=== PATIENT | male | born 1965 | race Caucasian/White ===

== ENCOUNTER 2019-12-19 07:10 | Day surgery (SDC) | payer OTHER ==
[2019-12-18 12:02] VITALS: BMI 38.2
[2019-12-19] MEDS ORDERED: AFRIN NASAL MIST 15 ML BOT ONE ×2 (08:51→09:00)
[2019-12-19] MEDS ORDERED: Lidocaine 1% w/Epinephrine 1:100K 20 ML VIAL ONE (08:59)
[2019-12-19] MEDS ORDERED: Bacitracin Zinc Ointment 30 gm TUBE ONE (09:00)
[2019-12-19] MEDS ORDERED: Fentanyl 250 MCG/5 ML VIAL ONE (09:14)
[2019-12-19] MEDS ORDERED: Rocuronium Bromide 10 MG/ML (10ML VIAL) ONE (09:17)
[2019-12-19] MEDS ORDERED: Glycopyrrolate 0.2 MG/ML 5 ML SYRINGE ONE (09:17)
[2019-12-19] MEDS ORDERED: Ondansetron PF 4 MG/2 ML Vial ONE (09:17)
[2019-12-19] MEDS ORDERED: Dexamethasone 20 MG/5 ML VIAL ONE (09:17)
[2019-12-19] MEDS ORDERED: Lidocaine 1% PF 5 ML VIAL ONE (09:17)
[2019-12-19] MEDS ORDERED: PROPOFOL 200 MG/20 ML VIAL ONE (09:17)
[2019-12-19] MEDS ORDERED: Labetalol HCl 100 MG/20 ML VIAL ONE (09:17)
[2019-12-19] MEDS ORDERED: Ferric Subsulfate (ASTRINGYN) 8 ML VIAL ONE (09:51)
[2019-12-19] MEDS ORDERED: Morphine 4 MG/ML VIAL ONE (09:56)
[2019-12-19] MEDS ORDERED: Hydrocodone-Acetamin 15 ML UDCUP ONE (11:34)
--- NOTE | 2019-12-19 12:36 | EKG ---
Test Reason : PREOP Blood Pressure : / mmHG Vent. Rate : 072 BPM Atrial Rate : 072 BPM P-R Int : 162 ms QRS Dur : 082 ms QT Int : 418 ms P-R-T Axes : 048 027 017 degrees QTc Int : 457 ms Normal sinus rhythm NS T wave changes No previous ECGs available Confirmed by DR. Robles BUCKLEY ([id number]) on 12/19/2019 12:35:42 PM Referred By: ALEXSANDER Confirmed By:DR. Robles BUCKLEY
--- NOTE | 2019-12-20 09:48 | OP ---
DATE OF PROCEDURE: 12/19/2019 PREOPERATIVE DIAGNOSES: 1. Obstructive sleep apnea. 2. Nasal septal deviation. 3. Bilateral inferior turbinate hypertrophy. 4. Chronic adenotonsillitis. 5. Adenotonsillar hypertrophy. POSTOPERATIVE DIAGNOSES: 1. Obstructive sleep apnea. 2. Nasal septal deviation. 3. Bilateral inferior turbinate hypertrophy. 4. Chronic adenotonsillitis. 5. Adenotonsillar hypertrophy. PROCEDURES PERFORMED: 1. Nasal septoplasty. 2. Bilateral inferior turbinate submucosal resection. 3. Tonsillectomy. ESTIMATED BLOOD LOSS: 20 mL. COMPLICATIONS: None. ANESTHESIA: GETA. PROCEDURE IN DETAIL: The patient was taken to the operating room, placed supine on the table. General endotracheal anesthesia was obtained by the anesthesia staff. The tube was secured at the left lower lip. The patient was then placed in the beach chair position. Afrin pledgets were placed in the nasal cavity, and the patient was prepped and draped for nasal surgery. Following this, the nasal pledgets were removed. 1% lidocaine with 1:100,000 epinephrine was injected into the nasal septum as well as the inferior and anterior portions of the inferior turbinates. A Stephon-type incision was made on the left nasal septum with a 15 blade. Using a Trimble elevator, submucoperichondrial dissection was performed on the left side. Then, the deviated portion of the septum was analyzed. An incision was made just anterior to the deviation which left a generous caudal strut. Submucoperichondrial dissection was then performed on the contralateral side. A swivel knife was then used to extract the cartilaginous portions of the deviated septum. The bony portion was then resected using a double action bone rongeur. Following this, the mucoperichondrial flaps were then reapproximated to their normal anatomical position. The septum was analyzed and was noted to be straight. A 4-0 gut stitch was placed in a mattress fashion to reapproximate the mucoperichondrial flaps. Following this, the inferior turbinates were punctured using a submucosal Coblator and submucosal coblations were performed of the anterior-inferior portions of the inferior turbinates. They were then laterally fractured. Following this, the 0-degree endoscope was advanced to the area of the middle meatus. The middle turbinates were medialized with a Dalton elevator. The uncinate process was injected with 1% lidocaine and 1:100,000 epinephrine. A sickle knife was used to incise the uncinate as it was anteriorly fractured with a Prieto probe. It was then removed using an up-biting Blakesley as well as a microdebrider. The Prieto probe was then punctured into the maxillary sinus in a lateral and inferior direction. This maxillary antrostomy was then widened using a microdebrider. The ethmoidal bulla was then punctured on its medial and inferior aspect with a microdebrider and was removed. Following this, it was punctured with blunt-end technique and a posterior ethmoidal cells that ran from posterior to anterior. The ethmoidal cells were then opened in mucosal sparing technique. Following this, sphenoid sinus was performed medial to the middle turbinate where the attachment of the superior turbinate was identified to the posterior nasal wall. The Loja-tip suction was then used to puncture into the sphenoid sinus bilaterally staying just medial and inferior to the attachment of the superior turbinate. This was then widened medially and inferiorly with the microdebrider. Following this, a 45-degree scope was used to visualize the frontal recess area. The curved microdebrider was used to remove anterior ethmoidal cells and frontal recess cells opening the frontal ostia. Following this, the nasal cavity was irrigated. Absorbable packs were placed in the middle meatus. Jasso splints were placed and secured. The patient tolerated the procedure well. Following this, the Michael-Rigoberto mouth gag was introduced into the oral cavity and retracted. The gigantic tonsils were encountered and were grasped with a curved Allis clamp and medialized. A Bovie electrocautery was used to perform a subcapsular tonsillectomy bilaterally. All hemostasis was obtained using a Bovie device. Cool saline was then irrigated into the oral cavity. The patient had a markedly elongated uvula, so the excessive portions of the uvula were then resected with the Bovie electrocautery and 4-0 chromic gut stitches were used to reapproximate mucosal edges. The patient tolerated the procedure well. Job ID: [id number]
== END 2019-12-19 12:34 | disposition home or self-care (01) ==
LOC: SDC 07:10
PROVIDERS: ATTEND Otolaryngology Plastic Surgery within the Head & Neck
PROC: 09BM8ZZ Excision of Nasal Septum, Via Natural or Artificial Opening Endoscopic (ICD-10-PCS; principal; 2019-12-19)
PROC: 0CTPXZZ Resection of Tonsils, External Approach (ICD-10-PCS; principal; 2019-12-19)
PROC: 09TL8ZZ Resection of Nasal Turbinate, Via Natural or Artificial Opening Endoscopic (ICD-10-PCS; principal; 2019-12-19)
DX: J35.03 Chronic tonsillitis and adenoiditis (principal); G47.33 Obstructive sleep apnea (adult) (pediatric); J32.4 Chronic pansinusitis; J34.2 Deviated nasal septum; J34.3 Hypertrophy of nasal turbinates; J34.89 Other specified disorders of nose and nasal sinuses; E78.00 Pure hypercholesterolemia, unspecified; Z79.51 Long term (current) use of inhaled steroids; Z79.82 Long term (current) use of aspirin
CPT/HCPCS: 88304; 93005; 93010; J1100; J2001; J2270; J2405; J2704; J3010